=== PATIENT | female | born 1965 | race Caucasian/White ===

== ENCOUNTER 2019-10-28 13:41 | Observation (INO) | payer MEDICARE, MEDICAID, SELFPAY ==
[2019-10-28] VITALS (7 sets, daily range): BP systolic 133–189; BP diastolic 49–100; PULSE 72–98; RESP 12–18; TEMP 36.4–36.6; O2SAT 98–100; BMI 31.9
--- NOTE | ~2019-10-28 | XR_ITS ---
EXAMINATION: XR chest 2V DATE: 10/30/2019 14:17 INDICATION: Shortness of breath and productive cough TECHNIQUE: Frontal and lateral views of the chest are obtained COMPARISON: 09/06/2017 FINDINGS: The lungs are free of acute opacities. There is no pleural effusion or pneumothorax. The ca rdiomediastinal silhouette is normal. There is mild thoracic spondylosis. IMPRESSION: 1. No acute cardiopulmonary abnormality. Reviewed, dictated and finalized at location A.
--- NOTE | ~2019-10-28 | CT_ITS ---
EXAMINATION: CTA brain EXAM DATE: 10/30/2019 14:33 INDICATION: Occipital headache. TECHNIQUE: Noncontrast head CT. Spiral CT angiogram cerebral arteries performed with intravenous in jection of 100 mL Omnipaque 350. Axial, coronal and sagittal images reviewed. Additional reformatted images created on dedicated 3-D workstation. The dose-length product (DLP) for this examination was 1140.24 mGy-cm. The exposure was tailored according to patient size, and iterative reconstruction (ASIR) was used as additional dose reduction technique. There is no prior study for comparison. FINDINGS: Minimal bilateral carotid siphon arterial sclerosis with 0% stenosis bilaterally. The vert ebral arteries are codominant. There is no distal carotid or vertebral basilar arterial dissection o r fibromuscular dysplasia. There are no cerebral artery aneurysms. There is symmetric cerebral artery arborization. The sagittal, transverse and sigmoid sinuses enhance normally, no venous sinus thrombo sis. Internal cerebral veins also enhance normally. There is no acute intraparenchymal hemorrhage. No evidence of intraparenchymal brain mass lesion. N o evidence of acute infarction. There is no mass effect or midline shift. There is no obstructive hyd rocephalus suspected. There are no extra-axial collections. There are no calvarial acute fractures. There are no areas of abnormal enhancement on the postcontrast images. IMPRESSION: 1. Minimal bilateral carotid siphon arterial sclerosis. No stenosis. 2. No acute findings. Reviewed, dictated and finalized at location B.
--- NOTE | ~2019-10-28 | CT_ITS ---
EXAMINATION: CT brain wo con DATE: 10/28/2019 18:58 INDICATION: Headache TECHNIQUE: Computed tomography (CT) of the head was performed without intravenous contrast. Sagittal and coronal reconstructions were performed. The mA was adjusted according to patient size. Iterative reconstruction technique was employed. The dose-length product was 605.33 mGy-cm. COMPARISON: head CT dated 11/22/2010 FINDINGS: No acute intracranial hemorrhage, acute infarction or abnormal extra axial fluid collection. Ventricl es are normal and symmetric. No mass/mass effect. Trace right mastoid effusion. The orbits and parana jody sinuses are normal. IMPRESSION: 1. Normal brain. No acute intracranial process. Reviewed, dictated and finalized at location A.
--- NOTE | 2019-10-28 14:10 | ED.HA ---
HPI - Headache General Chief Complaint: Headache <Makenzie Preciado MD - Last Filed: 10/29/19 07:11> Stated Complaint: migraine <Makenzie Preciado MD - Last Filed: 10/29/19 07:11> Time Seen by Provider: 10/28/19 14:02 <Makenzie Preciado MD - Last Filed: 10/29/19 07:11> Source: patient <Makenzie Preciado MD - Last Filed: 10/29/19 07:11> Mode of arrival: ambulatory <Makenzie Preciado MD - Last Filed: 10/29/19 07:11> Limitations: other (Sunglasses and ice bag wrapped around her head.) <Makenzie Preciado MD - Last Filed: 10/29/19 07:11> History of Present Illness HPI Narrative: Patient presents to the ED with a headache. She says she has migraines that start from her C1. She said she supposed to have surgery at [place] but she wants to have it at [facility]. She rattles off numerous spine levels at which she needs surgery. She said that her Percocets are not helping her. She gauges the pain at 12 out of 10. I tried to explain the 1-10 scale and she cut me off and would let me talk. She said there is one drug that really helps but she could not think of the name. She gets 90 percocets and 60 valium a month from her PCP. <Makenzie Preciado MD - Last Filed: 10/29/19 07:11> MD elicited complaint: headache and migraine <Makenzie Preciado MD - Last Filed: 10/29/19 07:11> Pertinent past history: hypertension <Makenzie Preciado MD - Last Filed: 10/29/19 07:11> Onset (ago): day(s) <Makenzie Preciado MD - Last Filed: 10/29/19 07:11> Onset description: gradually <Makenzie Preciado MD - Last Filed: 10/29/19 07:11> Location: occipital <Makenzie Preciado MD - Last Filed: 10/29/19 07:11> Quality & Timing: other (Stabbing) <Makenzie Preciado MD - Last Filed: 10/29/19 07:11> Exacerbating factors: none <Makenzie Preciado MD - Last Filed: 10/29/19 07:11> Relieving factors: nothing <Makenzie Preciado MD - Last Filed: 10/29/19 07:11> Treatments prior to arrival: other (Percocet) <Makenzie Preciado MD - Last Filed: 10/29/19 07:11> Related Data Home Medications: Home Medications Medication Instructions Recorded Confirmed mecobalamin (vitamin B12) 1,000 1,000 mcg PO DAILY 08/20/19 10/29/19 mcg chewable tablet multivitamin 1 tablet PO DAILY 08/20/19 10/29/19 pyridoxine (vitamin B6) 50 mg 50 mg PO DAILY 08/20/19 10/29/19 capsule albuterol sulfate [ProAir HFA] 1 inhalation INHALATION Q4H PRN 10/29/19 10/29/19 ascorbic acid (vitamin C) [Vitamin 100 mg PO DAILY 10/29/19 10/29/19 C] calcium carbonate [Calcium 500] 500 mg PO DAILY 10/29/19 10/29/19 ergocalciferol (vitamin D2) 50 mcg PO DAILY 10/29/19 10/29/19 fluticasone propionate [Flonase 1 spray INTRANASAL BID 10/29/19 10/29/19 Allergy Relief] insulin regular hum U-500 conc 25 unit SUBCUT DIRECTED 10/29/19 10/29/19 [Humulin R U-500 (Conc) Insulin] ipratropium-albuterol [Combivent 1 puff INHALATION QID 10/29/19 10/29/19 Respimat] potassium citrate 5 meq PO DAILY 10/29/19 10/29/19 <Makenzie Preciado MD - Last Filed: 10/29/19 07:11> Allergies/Adverse Reactions: Allergies Allergy/AdvReac Type Severity Reaction Status Date / Time ciprofloxacin Allergy Intermediate abdominal Verified 09/24/19 14:20 pain Penicillins Allergy Intermediate Rash Verified 09/24/19 14:20 pregabalin Allergy Intermediate Headache Verified 09/24/19 14:20 varenicline Allergy Intermediate Jittery Verified 09/24/19 14:20 latex Allergy Mild REDNESS AT Verified 09/24/19 14:20 CONTACT amitriptyline AdvReac Mild Unknown Verified 09/24/19 14:20 levofloxacin [From Levaquin] AdvReac shortness Verified 09/24/19 14:20 of breath <Makenzie Preciado MD - Last Filed: 10/29/19 07:11> Review of Systems Review of Systems: Narrative: CONSTITUTIONAL: EYES: Photophobia ENT: Denies rhinorrhea, congestion, sore throat, or otalgia. CARDIOVASCULAR: Denies chest pain, RESPIRATORY: Denies cough or dyspnea. GASTROINTESTINAL: Denies abdominal p
[2019-10-28] MEDS: METOCLOPRAMIDE HCL INJ 10 MG/2 ML VIAL IV PUSH (14:17)
[2019-10-28] MEDS: diphenhydrAMINE HCl INJ 50 MG/ML VIAL IV PUSH (14:18)
[2019-10-28] MEDS: SODIUM CHLORIDE 0.9% IV 1,000 ML 999 ML IV CONT (14:18)
[2019-10-28 14:33] LABS: Basophils Absolute Auto 0.1 K/mm3 (0.0-0.1); Basophils Percent Auto 0.9 % (0.2-1.2); Eosinophils Absolute Auto 0.4 K/mm3 (0-0.3); Eosinophils Percent Auto 4.1 % (0-4.4); Hematocrit 40.3 % (37.0-47.0); Hemoglobin 13.9 g/dL (12.0-15.0); Immature Granulocyte Absolute 0.03 K/mm3 (0.00-0.031); Immature Granulocyte Percent A 0.3 % (0-0.5); Lymphocytes Absolute Auto 2.96 K/mm3 (0.9-3.2); Lymphocytes Percent Auto 32.2 % (18.3-44.2); Mean Corpuscular HGB Conc 34.5 g/dl (32-36); Mean Platelet Volume 10.2 fl (7.4-10.4); Monocytes Absolute Auto 0.5 K/mm3 (0.1-0.6); Monocytes Percent Auto 5.7 % (2.6-8.5); Neutrophils Absolute Auto 5.2 K/mm3 (1.3-6.7); Neutrophils Percent Auto 56.8 % (45.5-73.1); Platelet Count Result 255 k/mm3 (150-375); Red Cell Distribution Width 13.1 % (11.5-14.5); White Blood Count 9.2 K/mm3 (4.5-10.0)
[2019-10-28 14:46] LABS: Alanine Aminotransferase 26 U/L (4-35); Albumin Level 4.8 g/dL (3.5-5.1); Alkaline Phosphatase 80 U/L (38-126); Anion Gap 11 mmol/L (8-16); Aspartate Amino Transferase 27 U/L (14-36); Bilirubin,Total 0.4 mg/dL (0.2-1.3); Blood Urea Nitrogen 11 mg/dL (7-17); Calcium 9.9 mg/dL (8.4-10.2); Carbon Dioxide 26 mmol/L (22-30); Chloride 97 mmol/L (98-107); Estimated CRCL calculation 68 ml/min; Estimated Glomerular Filt Rate > 60; Ethanol < 10 mg/dL (<10); Glucose 236 mg/dL (65-105); Potassium 4.1 mmol/L (3.4-5.0); Sodium 134 mmol/L (137-145)
[2019-10-28] MEDS: methylPREDNISolone SOD SUCC 125 MG VIAL IV PUSH (15:01)
[2019-10-28] MEDS: KETOROLAC 15 MG/ML VIAL (*BKC) IV PUSH (15:01)
[2019-10-28 15:06] LABS: Amphetamine Screen Urine Negative (Negative); Barbiturate Screen Urine Negative (Negative); Benzodiazepines Screen Urine Positive (Negative); Cannabinoid Screen Urine Negative (Negative); Cocaine Screen Urine Negative (Negative); Methadone Screen Urine Negative (Negative); Opiate Screen Urine Negative (Negative); Phencyclidine Screen Urine Negative (Negative)
[2019-10-28] MEDS: SUMAtriptan SUCCINATE 6 MG/0.5 ML VIAL SUB-Q (16:18)
--- NOTE | 2019-10-28 22:05 | ADMGEN ---
This patient, Maddie Pride, was admitted to [facility] Surg Room 302-01. Patient/family oriented to hospital policies and general routines including ID bracelet, bed and alarms, visiting hours, pain management, procedures, bathroom and other care routines, personal items, smoking policy, room service/diet, and visiting hours. Valuables list has been completed. Information on how to activate the Rapid Response Team has been discussed. Patient/Family are encouraged to report perceived risks to care and to ask questions if they do not understand what they are told or what they should do.
--- NOTE | 2019-10-28 23:30 | PM.IMHP ---
H&P: HPI History of Present Illness Date/Time: 10/28/19 23:30 Chief complaint: acute occipital headache Narrative: This is a 53 year old obese Diabetic female who is known to have chronic back pain on chronic narcotic therapy who presented to the hospital with a complaint of an ongoing posterior headache for the past three days with associated photophobia, phonophobia, and nausea. She denies any past history of significant headache although she is prescribed sumatriptan? She mentions that she has had back surgery and is in need of further spinal surgery and has chronic back pain. She denies any fevers, chills, neck stiffness, shortness of breath, chest pain, abdominal pain, dysuria, hematuria, diarrhea, LE swelling, focal neurological deficits, head trauma, passing out, or seizure like activity. She mentions that she took her oxycodone with a zofran at home which did not relieve her headache. In the ER tonight the patient was treated with IV acetaminophen, benadryl, Dilaudid, Ativan, Solumedrol, Reglan, Toradol, Depacon and sumatriptan without any relief. ER edwardre has consulted Neurology, Dr. Avalos who has asked that we admit the patient to the hospital and he will evaluate her in the morning. Review of Systems Review of Systems: All systems reviewed & are unremarkable except as noted in HPI and below PMFSH Past Medical History Medical History (Updated 10/28/19 @ 23:48 by Delfin Jones MD) Chronic migraine Chronic pain syndrome Lung nodule Surgical History Surgical History (Updated 10/28/19 @ 23:48 by Delfin Jones MD) History of back surgery Family History Family History Mother Family history of diabetes mellitus in first degree relative Sibling Family history of diabetes mellitus in first degree relative Father Family history of coronary artery disease Family history of diabetes mellitus in first degree relative Son Family history of diabetes mellitus in first degree relative Daughter Family history of diabetes mellitus in first degree relative Social History Social History Smoking packs per day: 1 Smoking cigarettes per day: 20.0 Years smoked: 40 Smoking pack-years: 40.00 Smoking status: Former smoker Tobacco type: cigarettes Second hand tobacco smoke exposure: No Additional smoking assessment comments: still smokes marijuana and has been since she was 13 Alcohol intake: current Substance use: current Substance use type: marijuana Last use: last night Gender identity (if verbalized by the patient): Female Spiritual care concerns: No Meds Home Medications and Allergies Home Medications Medication Instructions Recorded Confirmed Type lisinopril 20 mg tablet 20 mg PO DAILY 90 Days #90 tablet 05/02/19 10/29/19 Rx atorvastatin 40 mg tablet 40 mg PO DAILY 90 Days #90 tablet 05/14/19 10/29/19 Rx ondansetron 4 mg disintegrating 4 mg TRANSLINGUAL Q6H PRN 30 Days 06/27/19 10/29/19 Rx tablet #120 each diazepam 10 mg tablet 10 mg PO BID PRN 30 Days #60 08/13/19 10/29/19 Rx tablet MDD 2 tablets meloxicam 15 mg tablet 15 mg PO DAILY 90 Days #90 tablet 08/13/19 10/29/19 Rx mecobalamin (vitamin B12) 1,000 1,000 mcg PO DAILY 08/20/19 10/29/19 History mcg chewable tablet multivitamin 1 tablet PO DAILY 08/20/19 10/29/19 History pyridoxine (vitamin B6) 50 mg 50 mg PO DAILY 08/20/19 10/29/19 History capsule flash glucose sensor #1 each 08/27/19 10/29/19 Rx sumatriptan succinate 50 mg tablet 50 mg PO .COMPLEX #24 tablet 10/01/19 10/29/19 Rx blood sugar diagnostic #300 each 10/03/19 10/29/19 Rx oxycodone 10 mg tablet 10 mg PO Q8H PRN 30 Days #90 10/16/19 10/29/19 Rx tablet MDD 3 tablets albuterol sulfate [ProAir HFA] 1 inhalation INHALATION Q4H PRN 10/29/19 10/29/19 History ascorbic acid (vitamin C) [Vitamin 100 mg PO DAILY 10/29/19 10/29/19 History C] calcium carbo
[2019-10-29] MEDS: SODIUM CHLORIDE 0.9% IV 1,000 ML 125 ML IV CONT (01:15)
[2019-10-29 05:50] VITALS: BP 134/68; PULSE 79; RESP 20; TEMP 36.1; O2SAT 99
[2019-10-29 06:35] LABS: Basophils Percent Auto 0.1 % (0.2-1.2); Hematocrit 39.6 % (37.0-47.0); Hemoglobin 13.7 g/dL (12.0-15.0); Immature Granulocyte Absolute 0.08 K/mm3 (0.00-0.031); Immature Granulocyte Percent A 0.5 % (0-0.5); Lymphocytes Absolute Auto 1.54 K/mm3 (0.9-3.2); Lymphocytes Percent Auto 10.5 % (18.3-44.2); Mean Corpuscular HGB Conc 34.6 g/dl (32-36); Mean Corpuscular Hemoglobin 28.7 pg (26-34); Mean Platelet Volume 10.7 fl (7.4-10.4); Monocytes Absolute Auto 0.3 K/mm3 (0.1-0.6); Monocytes Percent Auto 1.7 % (2.6-8.5); Neutrophils Absolute Auto 12.8 K/mm3 (1.3-6.7); Neutrophils Percent Auto 87.2 % (45.5-73.1); Platelet Count Result 255 k/mm3 (150-375); Red Blood Count 4.77 M/mm3 (4.2-5.4); Red Cell Distribution Width 12.9 % (11.5-14.5); White Blood Count 14.7 K/mm3 (4.5-10.0)
[2019-10-29 06:46] LABS: Alanine Aminotransferase 23 U/L (4-35); Albumin Level 4.5 g/dL (3.5-5.1); Alkaline Phosphatase 68 U/L (38-126); Anion Gap 10 mmol/L (8-16); Aspartate Amino Transferase 21 U/L (14-36); Bilirubin,Total 0.2 mg/dL (0.2-1.3); Blood Urea Nitrogen 16 mg/dL (7-17); Calcium 9.5 mg/dL (8.4-10.2); Carbon Dioxide 23 mmol/L (22-30); Chloride 103 mmol/L (98-107); Estimated CRCL calculation 72 ml/min; Estimated Glomerular Filt Rate > 60; Glucose 191 mg/dL (65-105); Potassium 4.2 mmol/L (3.4-5.0); Sodium 136 mmol/L (137-145)
[2019-10-29] MEDS: FLUTICASONE PROPIONATE 0.05% NA SPR 16 GM BTL (*BKC) 1 SPRAY NASAL ×2 (06:59→16:48)
[2019-10-29] MEDS: ONDANSETRON INJ 4 MG/2 ML VIAL IV PUSH ×2 (07:13→22:38)
[2019-10-29] MEDS: ATORVASTATIN 40 MG TABLET PO (08:42)
[2019-10-29] MEDS: CALCIUM CARBONATE (OSCAL) 500 MG TABLET PO (08:42)
[2019-10-29] MEDS: CYANOCOBALAMIN 1,000 MCG TABLET 1000 MCG PO (08:43)
[2019-10-29] MEDS: MULTIVITAMINS THERAPEUTIC TAB (*BKC) 1 TABLET PO (08:43)
[2019-10-29] MEDS: lisinopriL 20 MG TABLET PO (08:43)
[2019-10-29] MEDS: CHOLECALCIFEROL 1,000 UNITS TABLET 2000 UNITS PO (08:43)
[2019-10-29] MEDS: PYRIDOXINE HCL 50 MG TABLET PO (08:43)
[2019-10-29] MEDS: SUMAtriptan SUCCINATE 25 MG TABLET 50 MG PO ×2 (08:44→16:47)
[2019-10-29] MEDS: ALBUTEROL SULFATE (*SP) AEROSOL 1 PUFF INHALATION (08:53)
--- NOTE | 2019-10-29 08:54 | PC.NURSE ---
0115 Patient became agitated when we did not have a boxed lunch for her. Charan crackers and peanut butter were offered but the patient refused and stated that she would just starve. Patient then became very demanding stating that she wanted a BSC and ice for her head. The patient was also complaining that she had not received her 2100 meds (patient did not get to my floor until after 2200). I told patient that we would check other floors for a boxed lunch because at that point the rehab floor was the only one checked. A boxed lunch, BSC, and ice were supplied to the patient. As far as the meds goes I still needed to finish her med rec which I worked on shortly thereafter. The Manager Of Creative Services Maureen was made aware.
[2019-10-29 09:44] LABS: Glucose Point of Care 145 (65-105)
[2019-10-29] MEDS: ASCORBIC ACID 125 MG TABLET PO (09:52)
[2019-10-29] MEDS: SODIUM CHLORIDE 0.9% IV 1,000 ML 75 ML IV CONT (09:55)
--- NOTE | 2019-10-29 11:34 | PC.NURSE ---
This nurse at 11am notified telehealth nurse educator that this patient needs to see them. diabetes educator was notified that the patient is not compliant with insulin pump orders and gives herself bolus of insulin based upon her guess of how many carbs she ate.
[2019-10-29] MEDS: diazePAM 10 MG TABLET PO (12:38)
--- NOTE | 2019-10-29 12:45 | PC.NURSE ---
Outpatient referral started for Initial DSMT and MNT. [facility] to Dr[facility].
[2019-10-29 12:50] LABS: Glucose Point of Care 222 (65-105)
[2019-10-29 14:00] VITALS: BP 173/75; PULSE 66; RESP 18; TEMP 36; O2SAT 100
--- NOTE | 2019-10-29 14:00 | PCDIET ---
Nutrition MST and MD consult Complete: Pt current nutrition is [facility]. Nutrition recommendation: Agree that [facility] diet is appropriate Last recorded weight is 81.9 kg.-Pt states UBW is 180 and she is currently 180.1lbs. No unintended wt loss. Labs Reviewed: Glucose 145 Additional Notes: Spoke today with pt regarding diet and carbs. Pt is very on top of carbs and insulin dosing. She has requested all tickets from [employer] come up with carbs provided. I have contacted diet office to communicate this request. She eats regularly throughout the day and stopped drinking dark soda, coffee, caffeine. She states she likes green tea every morning, decaf. Wt loss screen invalid. Pt has a good appetite and understands where carbs are found and how they effect blood sugar. We will continue to monitor for adequate intake and blood sugar control every seven days.
--- NOTE | 2019-10-29 14:38 | PM.IMPN ---
Progress Note: A&P Assessment and Plan (1) Headache: Qualifiers: Headache chronicity pattern: unspecified pattern Headache type: unspecified Intractability: intractable Qualified Code(s): R51 - Headache Code(s): R51 - Headache Status: Acute Assessment and Plan: Patient tells Dr. Mcnamara that her home medication regimen usually helps but has been worse the past several days. CTA of the head per Dr. Mcnamara. Appreciate Neuro recommendations Neurochecks. Continue Tylenol and home pain regimen Continue Neurology recommendations. Await further rec (2) Chronic pain syndrome: Code(s): G89.4 - Chronic pain syndrome Status: Chronic Assessment and Plan: Continue home oxycodone PO. Appears to be well controlled (3) Benign essential HTN: Code(s): I10 - Essential (primary) hypertension Status: Chronic Assessment and Plan: BP 130s sys Monitor blood pressure. Continue Lisinopril PO. (4) Generalized anxiety disorder: Code(s): F41.1 - Generalized anxiety disorder Status: Chronic Assessment and Plan: Anxious appearing during visit Continue diazepam PO Will check TSH as well to see if any underlying thyroid disorder (5) Type 2 diabetes mellitus with diabetic polyneuropathy, with long-term current use of insulin: Code(s): E11.42 - Type 2 diabetes mellitus with diabetic polyneuropathy; Z79.4 - intermediate (current) use of insulin Status: Chronic Assessment and Plan: BGL 100-200s. Check A1c tomorrow Accuchecks, SSI Coverage, Hypoglycemic protocol. Continue insulin pump. Patient agreeable to allow Nursing to document sugars and how much insulin she is administering (6) Lumbar radiculopathy, chronic: Code(s): M54.16 - Radiculopathy, lumbar region Status: Chronic Assessment and Plan: Continue pain control as needed. Subjective Date/time seen: 10/29/19 14:38 Interval history: Patient is a 53 yo F with history of chronic migraine, DM, and chronic back pain on chronic narcotic therapy who is here for intractable headache. Patient is anxious today, and is still having her headache. Dr. Mcnamara was in room as well, asking patient a history. Patient states her home oxycodone and diazepam are the only things that help. She is declining IV morphine and Dilaudid as these do not help with her pain. She states Dr. Summers manages her chronic pain issues. She notes that her oxycodone is prescribed for her back pain and helps with her headaches at times too. She is agreeable to be placed on her home regimen to see if this helps again. She is also agreeing to have nurses in room to check her insulin and to document how much insulin she gives during the day. She feels hot. No other complaints. Denies f/c/s, myalgias/arthralgias, neck pain, dizziness, lightheadedness, changes in v/h, sudden blindness, cp/palpitations, sob/cough, n/v/d/c, abd pain, changes in BMs, dysuria, hematuria, cloudy urine, calf pain/swelling. Review of Systems Review of Systems: All systems reviewed & are unremarkable except as noted in HPI and below Exam Narrative: Exam Narrative: General: Patient very active, standing most of the visit, anxious appearing, seemingly pressured speech/logorrhea with difficulty for providers/nurses to talk during visit HEENT: Normocephalic, EOMI, oral mucosa moist. Cardiovascular: Rate and rhythm are regular. No notable murmur, rub, or gallop. Respiratory: Lungs clear to auscultation all vera. Non-labored breathing. Abdomen: Soft, non-tender, non-distended, bowel sounds present hypoactive Extremities: Peripheral pulses intact. No edema. NTTP b/l calves Neuro: No focal neurological deficits.
--- NOTE | 2019-10-29 15:11 | WPDNEURCNPN ---
Assessment and Plan Assessment and plan (1) Headache: Qualifiers: Headache chronicity pattern: unspecified pattern Headache type: unspecified Intractability: intractable Qualified Code(s): R51 - Headache Code(s): R51 - Headache Status: Acute (2) Chronic pain syndrome: Code(s): G89.4 - Chronic pain syndrome Status: Chronic (3) Chronic migraine: Code(s): G43.709 - Chronic migraine without aura, not intractable, without status migrainosus Status: Acute (4) Lung nodule: Code(s): R91.1 - Solitary pulmonary nodule Status: Acute (5) Adjustment disorder with depressed mood: Code(s): F43.21 - Adjustment disorder with depressed mood Status: Acute (6) Arteriosclerotic heart disease: Code(s): I25.10 - Atherosclerotic heart disease of [place] coronary artery without angina pectoris Status: Acute (7) Chronic allergic rhinitis: Code(s): J30.9 - Allergic rhinitis, unspecified Status: Acute (8) Chronic obstructive pulmonary disease, unspecified: Code(s): J44.9 - Chronic obstructive pulmonary disease, unspecified Status: Acute (9) Diabetic gastroparesis: Code(s): E11.43 - Type 2 diabetes mellitus with diabetic autonomic (poly)neuropathy; K31.84 - Gastroparesis Status: Acute (10) Fitting and adjustment of insulin pump: Code(s): Z46.81 - Encounter for fitting and adjustment of insulin pump Status: Acute (11) Gastroparesis: Code(s): K31.84 - Gastroparesis Status: Acute (12) Generalized anxiety disorder: Code(s): F41.1 - Generalized anxiety disorder Status: Chronic (13) Benign essential HTN: Code(s): I10 - Essential (primary) hypertension Status: Chronic (14) Hypertensive heart disease without heart failure: Code(s): I11.9 - Hypertensive heart disease without heart failure Status: Acute (15) Insulin pump in place: Code(s): Z96.41 - Presence of insulin pump (external) (internal) Status: Acute (16) Lumbar radiculopathy, chronic: Code(s): M54.16 - Radiculopathy, lumbar region Status: Chronic Additional Plan symptomatic treatment for headache CTA of the brain to make sure she does not have any aneurysm which I doubt she does she needs to see a pain management physician and also neurosurgeon for her chronic neck and back problem Consult date: 10/29/19 Time Seen: 14:30 HPI: Maddie Pride is a 53 year old female who at this time of examination is quite upset is seems like ready to leave the hospital and presents of the PA who was nice and quite during the examination and history taking apparently according to her she has had this headache which starts from the back part of the head and comes front and it has been recalcitrant without any fever chills sore throat or change in the mental status she does have photophobia and phonophobia and gives me the history that she has had migraines in the past and the character is roughly about the same except the intensity and lung give 80 it has sustained she does have chronic issues of the neck and the back pain for which she is contemplating to see a neurosurgeon as per recommendation of the primary care physician who has been prescribing her some medication which includes the oxycodone 10 milligram 3 times a day she has not responded to morphine she has not responded to hydrocodone and is seems like she would benefit from the oxycodone which she has taken in the past PMFSH Past Medical History Medical History Chronic migraine Chronic pain syndrome Lung nodule Surgical History Surgical History History of back surgery Family History Family History Mother Family history of diabetes mellitus in first degree relative Sibling Family history
[2019-10-29 17:29] LABS: Glucose Point of Care 208 (65-105)
--- NOTE | 2019-10-29 18:20 | PC.NURSE ---
diabetic instruction on accu check and use of her insulin pump has been given to pt at each accu check pt insist she knows how to manage her diabetes and refuses novolog sliding scale . she unhooks her pump does not use basal rate and then doses herself with her pump depending on what her accu check is and how many carbs she eats, pt is keeping a log at bedside.Hawk durand was notified.
[2019-10-29 22:00] VITALS: BP 143/77; PULSE 100; RESP 18; TEMP 36.4; O2SAT 99
[2019-10-29 22:30] VITALS: PULSE 100; RESP 18; O2SAT 99
[2019-10-29 22:52] LABS: Glucose Point of Care 194 (65-105)
[2019-10-30] MEDS: FLUTICASONE PROPIONATE 0.05% NA SPR 16 GM BTL (*BKC) 1 SPRAY NASAL (02:59)
[2019-10-30] MEDS: diazePAM 10 MG TABLET PO ×2 (03:03→10:24)
[2019-10-30] MEDS: ALBUTEROL SULFATE (*SP) AEROSOL 1 PUFF INHALATION ×2 (03:29→13:31)
[2019-10-30 06:00] VITALS: BP 137/60; PULSE 81; RESP 18; TEMP 37.2; O2SAT 100
[2019-10-30 06:11] LABS: Basophils Absolute Auto 0.1 K/mm3 (0.0-0.1); Basophils Percent Auto 0.5 % (0.2-1.2); Eosinophils Absolute Auto 0.1 K/mm3 (0-0.3); Eosinophils Percent Auto 0.7 % (0-4.4); Hematocrit 36.4 % (37.0-47.0); Hemoglobin 12.3 g/dL (12.0-15.0); Immature Granulocyte Absolute 0.04 K/mm3 (0.00-0.031); Immature Granulocyte Percent A 0.3 % (0-0.5); Lymphocytes Absolute Auto 3.95 K/mm3 (0.9-3.2); Lymphocytes Percent Auto 31.8 % (18.3-44.2); Mean Corpuscular HGB Conc 33.8 g/dl (32-36); Mean Corpuscular Hemoglobin 28.5 pg (26-34); Mean Corpuscular Volume 84.5 fl (80-100); Mean Platelet Volume 10.7 fl (7.4-10.4); Monocytes Absolute Auto 0.6 K/mm3 (0.1-0.6); Monocytes Percent Auto 5.1 % (2.6-8.5); Neutrophils Absolute Auto 7.7 K/mm3 (1.3-6.7); Neutrophils Percent Auto 61.6 % (45.5-73.1); Platelet Count Result 230 k/mm3 (150-375); Red Blood Count 4.31 M/mm3 (4.2-5.4); Red Cell Distribution Width 13.3 % (11.5-14.5); White Blood Count 12.4 K/mm3 (4.5-10.0)
[2019-10-30] MEDS: ONDANSETRON INJ 4 MG/2 ML VIAL IV PUSH (06:25)
--- NOTE | 2019-10-30 07:56 | PC.NURSE ---
2230: patient called for pain medicine. rates h/a 24/12. patient angry that this engineering technical writer did not wake her after shift change to introduce self. patient was sleeping with lights off and door closed and eye mask on and had recently been medicated for migraine h/a. this engineering technical writer placed name on white board. and allowed patient to rest. blood sugar was taken at 2230 to correlate with her own blood sugar mx system and was 194. patient's mood angry and aggressive.
--- NOTE | 2019-10-30 08:02 | PC.NURSE ---
0330.patient called for flonase and prn valium . patient pleasant and agreeable at this time. mood labile throughout shift. patient perseverates and appears grandiose in her thinking.
[2019-10-30] MEDS: CALCIUM CARBONATE (OSCAL) 500 MG TABLET PO (09:20)
[2019-10-30] MEDS: ASCORBIC ACID 125 MG TABLET PO (09:20)
[2019-10-30] MEDS: ATORVASTATIN 40 MG TABLET PO (09:20)
[2019-10-30] MEDS: PYRIDOXINE HCL 50 MG TABLET PO (09:21)
[2019-10-30] MEDS: CYANOCOBALAMIN 1,000 MCG TABLET 1000 MCG PO (09:21)
[2019-10-30] MEDS: MULTIVITAMINS THERAPEUTIC TAB (*BKC) 1 TABLET PO (09:21)
[2019-10-30] MEDS: lisinopriL 20 MG TABLET PO (09:21)
[2019-10-30 09:33] LABS: Glucose Point of Care 73 (65-105)
[2019-10-30] MEDS: CHOLECALCIFEROL 1,000 UNITS TABLET 2000 UNITS PO (10:08)
[2019-10-30 11:30] VITALS: BMI 31.9
--- NOTE | 2019-10-30 13:43 | PM.IMPN ---
Progress Note: A&P Assessment and Plan (1) Headache: Qualifiers: Headache chronicity pattern: unspecified pattern Headache type: unspecified Intractability: intractable Qualified Code(s): R51 - Headache Code(s): R51 - Headache Status: Acute Assessment and Plan: Patient stated her home medication regimen usually helps but has been worse the past several days. CTA of the head per Dr. Mcnamara to be done today. Appreciate Neuro recommendations Neurochecks. Continue Tylenol and home pain regimen Continue Neurology recommendations. Await further rec (2) Cough: Code(s): R05 - Cough Status: Acute Assessment and Plan: Patient now complaining of cough and chest tightness. She is very concerned she has pneumonia. Requests her home combivent and CXR. patient has mild leukocytosis and is afebrile. PNA felt to be less likely Obtain CXR today Monitor May use home combivent during hospital stay. Hold on abx for now; await CXR results (3) Chronic pain syndrome: Code(s): G89.4 - Chronic pain syndrome Status: Chronic Assessment and Plan: Continue home oxycodone PO. Appears to be well controlled (4) Benign essential HTN: Code(s): I10 - Essential (primary) hypertension Status: Chronic Assessment and Plan: BP 130s sys Monitor blood pressure. Continue Lisinopril PO. (5) Generalized anxiety disorder: Code(s): F41.1 - Generalized anxiety disorder Status: Chronic Assessment and Plan: Anxious appearing. TSH WNL Continue diazepam PO (6) Type 2 diabetes mellitus with diabetic polyneuropathy, with long-term current use of insulin: Code(s): E11.42 - Type 2 diabetes mellitus with diabetic polyneuropathy; Z79.4 - skilled nursing (current) use of insulin Status: Chronic Assessment and Plan: BGL 73 this morning. A1c 8.0 Accuchecks, SSI Coverage, Hypoglycemic protocol. Continue insulin pump. Patient agreeable to allow Nursing to document sugars and how much insulin she is administering (7) Lumbar radiculopathy, chronic: Code(s): M54.16 - Radiculopathy, lumbar region Status: Chronic Assessment and Plan: Continue pain control as needed. Subjective Date/time seen: 10/30/19 13:43 Interval history: Patient is a 53 yo F with history of chronic migraine, DM, and chronic back pain on chronic narcotic therapy who is here for intractable headache and now evaluation for development of cough. Patient is anxious again today, and is still having her headache. She is awaiting her CTA of the brain and is requesting a CXR as she has had PNA before. She states she has chest tightness and is requesting her home combivent. She is producing yellow/green sputum and is feeling sob, subjective f/c. No other complaints. Denies myalgias/arthralgias, neck pain, dizziness, lightheadedness, cp/palpitations, n/v/d/c, abd pain, dysuria, hematuria, cloudy urine, calf pain/swelling. Review of Systems Review of Systems: All systems reviewed & are unremarkable except as noted in HPI and below Exam Narrative: Exam Narrative: General: Patient sitting on side of bed with sunglasses on and eyemask sitting on top of head, wrapped in blankets HEENT: Normocephalic, EOMI, oral mucosa moist. Cardiovascular: Rate and rhythm are regular. No notable murmur, rub, or gallop. Respiratory: Coughing during exam. Mild rhonchi noted left lower lung field. Non-labored breathing. Abdomen: Soft, non-tender, non-distended, bowel sounds present hypoactive Extremities: Peripheral pulses intact. No edema. NTTP b/l calves Neuro: No focal neurological deficits. Speech is clear. Objective Da
[2019-10-30 14:00] VITALS: BP 145/82; PULSE 91; RESP 16; TEMP 36.9; O2SAT 99
--- NOTE | 2019-10-30 14:32 | WPDNEUROPN ---
Progress Note: A&P Assessment and Plan (1) Cough: Code(s): R05 - Cough Status: Acute (2) Headache: Qualifiers: Headache chronicity pattern: unspecified pattern Headache type: unspecified Intractability: intractable Qualified Code(s): R51 - Headache Code(s): R51 - Headache Status: Acute (3) Chronic pain syndrome: Code(s): G89.4 - Chronic pain syndrome Status: Chronic (4) Chronic migraine: Code(s): G43.709 - Chronic migraine without aura, not intractable, without status migrainosus Status: Acute (5) Lung nodule: Code(s): R91.1 - Solitary pulmonary nodule Status: Acute (6) Adjustment disorder with depressed mood: Code(s): F43.21 - Adjustment disorder with depressed mood Status: Acute (7) Arteriosclerotic heart disease: Code(s): I25.10 - Atherosclerotic heart disease of [place] coronary artery without angina pectoris Status: Acute (8) Chronic allergic rhinitis: Code(s): J30.9 - Allergic rhinitis, unspecified Status: Acute (9) Chronic obstructive pulmonary disease, unspecified: Code(s): J44.9 - Chronic obstructive pulmonary disease, unspecified Status: Acute (10) Diabetic gastroparesis: Code(s): E11.43 - Type 2 diabetes mellitus with diabetic autonomic (poly)neuropathy; K31.84 - Gastroparesis Status: Acute (11) Fitting and adjustment of insulin pump: Code(s): Z46.81 - Encounter for fitting and adjustment of insulin pump Status: Acute (12) Generalized anxiety disorder: Code(s): F41.1 - Generalized anxiety disorder Status: Chronic (13) Benign essential HTN: Code(s): I10 - Essential (primary) hypertension Status: Chronic (14) Lumbar radiculopathy, chronic: Code(s): M54.16 - Radiculopathy, lumbar region Status: Chronic Additional Plan discussed with her about the plan of management and she is agreeable if the CTA of the brain is negative then the patient can be discharged on should have a follow-up with the primary care physician and follow up with the neurosurgeon which here she was contemplating to see for her chronic neck and back pain Review of Systems Review of Systems: All systems reviewed & are unremarkable except as noted in HPI and below Exam Const: General: comfortable and no acute distress HENMT: General nose exam: Normal nares present Mouth: Yes moist mucous membranes Eyes: General: appearance normal, both eyes and all related structures Neck: Neck: supple and no JVD Resp: Effort & Inspection: normal respiratory effort Auscultation: clear to auscultation bilaterally Cardio: Rate: regular rate Rhythm: regular rhythm Skin: General skin exam: normal color and no rashes or lesions noted Neuro: Other: patient remains awake alert well oriented does have photophobia and phonophobia but relatively more cooperative for examination without any lateralizing focal motor deficit Extrem: General: normal to inspection Psych: Other: patient clearly suffers from the anxiety state and keeps on changing the symptomatology from the headache and chronic back pain to her lungs suggesting that her daughter told her that she may be developing pneumonia in any event that I will defer to the hospitalist Objective Data Vital Signs Vital Signs: Vital Signs - 24 hr 10/29/19 22:00 10/29/19 22:30 10/30/19 06:00 Temperature 36.4 C L 37.2 C Pulse Rate 100 100 81 Respiratory Rate 18 18 18 Blood Pressure 143/77 H 137/60 Pulse Oximetry 99 99 100 Intake/Output Intake/Output: Intake & Output 10/27/19 10/28/19 10/29/19 10/30/19 23:59 23:59 23:59 23:59 Intake Total 1202.5 4090 1160 Output Total 2500 Balance 1202.5 1590 1160 Meds/Results Medications: Active Medications Generic Name Dose Route Start Last Admin Trade Name Freq PRN Reason Stop Dose Admin Acetaminophen 650 mg 10/29/19 07:30 Tylenol Table
--- NOTE | 2019-10-30 14:59 | PM.DS ---
DS: Admitting Diagnosis Admitting Diagnosis Admitting Diagnosis: acute on chronic occipital headache DS: Discharge Diagnosis Discharge Diagnosis (1) Headache: Qualifiers: Headache chronicity pattern: unspecified pattern Headache type: unspecified Intractability: intractable Qualified Code(s): R51 - Headache Code(s): R51 - Headache Status: Acute Assessment and Plan: Patient stated her home medication regimen usually helps but has been worse the past several days. CTA of the head per Dr. Mcnamara found no acute findings. Okay for discharge from Neurology standpoint. Appreciate Neuro recommendations Neurochecks. Continue Tylenol and home pain regimen Continue Neurology recommendations. F/u with PCP for possible Neurosurgery consult (2) Cough: Code(s): R05 - Cough Status: Acute Assessment and Plan: Patient now complaining of cough and chest tightness. She is very concerned she has pneumonia. Requests her home combivent and CXR. patient has mild leukocytosis and is afebrile. PNA felt to be less likely. CXR no acute cardiopulmonary disease F/u with PCP (3) Chronic pain syndrome: Code(s): G89.4 - Chronic pain syndrome Status: Chronic Assessment and Plan: Continue home oxycodone PO. Appears to be well controlled (4) Benign essential HTN: Code(s): I10 - Essential (primary) hypertension Status: Chronic Assessment and Plan: BP 130s sys Monitor blood pressure. Continue Lisinopril PO. (5) Generalized anxiety disorder: Code(s): F41.1 - Generalized anxiety disorder Status: Chronic Assessment and Plan: Anxious appearing. TSH WNL Continue diazepam PO (6) Type 2 diabetes mellitus with diabetic polyneuropathy, with long-term current use of insulin: Code(s): E11.42 - Type 2 diabetes mellitus with diabetic polyneuropathy; Z79.4 - moth exterminator (current) use of insulin Status: Chronic Assessment and Plan: BGL 73 this morning. A1c 8.0 Accuchecks, SSI Coverage, Hypoglycemic protocol. Continue insulin pump. Patient agreeable to allow Nursing to document sugars and how much insulin she is administering Sample Distributor consulted and appears patient is using insulin pump in an unorthodox manner. Unclear how much she insulin she is giving her self at a given time. It should be noted that patient adamantly refused to using our insulin basal-bolus protocol after this was discovered. We have instructed her to follow up with her PCP promptly for further care and to follow up with the Sample Distributor if she so choses. (7) Lumbar radiculopathy, chronic: Code(s): M54.16 - Radiculopathy, lumbar region Status: Chronic Assessment and Plan: Continue pain control as needed. DS: Summary Hospital Course Reason for hospitalization: acute occipital headaches Hospital Course: Patient is a 53 yo F with history of DM (on insulin pump), chronic migraine, and chronic back pain on chronic narcotic therapy who presented to the hospital with a complaint of an ongoing posterior headache for the past three days with associated photophobia, phonophobia, and nausea. While in the ED, CT imaging of the head was unremarkable. Her headache was refractory to pain medications in the ED. Dr. Mcnamara (Neurology) consulted from the ED. Patient admitted under this setting. Please see H&P for further details. Presenting VS: Temp Pulse Resp BP Pulse Ox 97.5 F L 98 16 189/100 H 100 10/28/19 13:50 10/28/19 13:50 10/28/19 13:50 10/28/19 13:50 10/28/19 13:50 Presenting Pertinent labs: A1c 8.0, TSH 2.060, tox screen positive for benzodiazepines (patient on chronic the
[2019-10-30 15:03] LABS: Glucose Point of Care 85 (65-105)
== END 2019-10-30 15:40 | disposition home or self-care (01) ==
LOC: ANHED 21:04 → ANH3MEDSUR 21:32
PROVIDERS: General Practice; Physician Assistant; Admitting Provider Family Medicine; Emergency Provider Emergency Medicine; PCP Internal Medicine; Visit Provider Family Medicine
DX: G43.709 Chronic migraine without aura, not intractable, without status migrainosus (principal); R05 Cough; D72.829 Elevated white blood cell count, unspecified; E66.9 Obesity, unspecified; E11.42 Type 2 diabetes mellitus with diabetic polyneuropathy; F41.1 Generalized anxiety disorder; F12.90 Cannabis use, unspecified, uncomplicated; G89.4 Chronic pain syndrome; I10 Essential (primary) hypertension; J30.9 Allergic rhinitis, unspecified; J44.9 Chronic obstructive pulmonary disease, unspecified; M54.16 Radiculopathy, lumbar region; Z96.41 Presence of insulin pump (external) (internal); Z79.4 Long term (current) use of insulin; Z87.891 Personal history of nicotine dependence; Z79.891 Long term (current) use of opiate analgesic; Z68.32 Body mass index [BMI] 32.0-32.9, adult
CPT/HCPCS: 36415; 70450; 70496; 71046; 80053; 80307; 83036; 84443; 85025; 94640; 96361; 96365; 96367; 96372; 96375; 96376; 99285; A9270; G0378; J0131; J1170; J1200; J1885; J2060; J2405; J2765; J2930; J3030; J7030; Q9967